=== PATIENT | female | born 2000 | race African-American/Black ===

== ENCOUNTER 2021-03-09 00:06 | Emergency (ER) ==
[~2021-03-09] VITALS: Ht 165.1 cm; Wt 63.4 kg
== END 2021-03-09 00:24 | disposition admitted as inpatient to this hospital (09) ==
LOC: M ED 00:06
DX: R10.9 Unspecified abdominal pain (principal)

== ENCOUNTER 2021-03-09 00:28 | Outpatient (CLI) ==
[~2021-03-09] VITALS: Ht 165.1 cm; Wt 62.7 kg
[2021-03-09 01:00] VITALS: BP 117/71
[2021-03-09 01:43] LABS: HEMATOCRIT 32.5 % (36.0-47.0); HEMOGLOBIN 10.8 g/dl (12.0-15.5); MEAN CORPUSCULAR HEMOGLOBIN 30.9 pg (27.0-33.0); MEAN CORPUSCULAR HGB CONC 33.2 g/dl (32.0-36.5); MEAN CORPUSCULAR VOLUME 93.1 fl (80.0-96.0); PLATELET COUNT, AUTOMATED 237 10^3/uL (150-450); RED BLOOD COUNT 3.49 10^6/uL (4.00-5.40); WHITE BLOOD COUNT 11.2 10^3/uL (4.0-10.0)
[2021-03-09 02:08] LABS: ALT/SGPT 95 U/L (12-78); BILIRUBIN,TOTAL 0.6 MG/DL (0.2-1.0); BLOOD UREA NITROGEN 7 MG/DL (7-18); CALCIUM LEVEL 8.8 MG/DL (8.5-10.1); CARBON DIOXIDE LEVEL 24 MEQ/L (21-32); CHLORIDE LEVEL 107 MEQ/L (98-107); CREATININE FOR GFR 0.54 MG/DL (0.55-1.30); GLOMERULAR FILTRATION RATE > 60.0 (>60); GLUCOSE, FASTING 97 MG/DL (70-100); POTASSIUM SERUM 4.2 MEQ/L (3.5-5.1); SODIUM LEVEL 138 MEQ/L (136-145); TOTAL PROTEIN 6.7 GM/DL (6.4-8.2)
[2021-03-09] MEDS ORDERED: ONDANSETRON 4MG/2ML VIAL IV SCH (02:15)
[2021-03-09 02:33] VITALS: BP 119/65
[2021-03-09] MEDS ORDERED: MULTIVITAMIN -ADULT INJECTION 10 ML, THIAMINE INJection 100 MG, FOLIC ACID 1 MG in NS 1... IV ONE (03:00)
[2021-03-09 04:52] VITALS: BP 114/73
--- NOTE | 2021-03-09 05:56 | ED PDOC ---
Post-Departure Follow-Up Bad table Item Value Date Time Sodium Level 138 MEQ/L 03/09/21 0134 Potassium Level 4.2 MEQ/L 03/09/21 0134 Chloride Level 107 MEQ/L 03/09/21 0134 Carbon Dioxide Level 24 MEQ/L 03/09/21 0134 Anion Gap 7 MEQ/L L 03/09/21 0134 Blood Urea Nitrogen 7 MG/DL 03/09/21 0134 Creatinine 0.54 MG/DL L 03/09/21 0134 Glomerular Filtration Rate > 60.0 03/09/21 0134 Fasting Glucose 97 MG/DL 03/09/21 0134 Calcium Level 8.8 MG/DL 03/09/21 0134 Total Bilirubin 0.6 MG/DL 03/09/21 0134 Aspartate Amino Transf (AST/SGOT) 99 U/L H 03/09/21 0134 Alanine Aminotransferase (ALT/SGPT) 95 U/L H 03/09/21 0134 Alkaline Phosphatase 79 U/L 03/09/21 0134 Total Protein 6.7 GM/DL 03/09/21 0134 Albumin 3.0 GM/DL L 03/09/21 0134 Albumin/Globulin Ratio 0.8 L 03/09/21 0134 Item Value Date Time White Blood Count 11.2 10^3/uL H 03/09/21 0134 Red Blood Count 3.49 10^6/uL L 03/09/21 0134 Hemoglobin 10.8 g/dl L 03/09/21 0134 Hematocrit 32.5 % L 03/09/21 0134 Mean Corpuscular Volume 93.1 fl 03/09/21 0134 Mean Corpuscular Hemoglobin 30.9 pg 03/09/21 0134 Mean Corpuscular Hemoglobin Concent 33.2 g/dl 03/09/21 0134 Red Cell Distribution Width 13.3 % 03/09/21 0134 Platelet Count 237 10^3/uL 03/09/21 0134 Item Value Date Time White Blood Count 11.2 10^3/uL H 03/09/21 0134 Red Blood Count 3.49 10^6/uL L 03/09/21 0134 Hemoglobin 10.8 g/dl L 03/09/21 0134 Hematocrit 32.5 % L 03/09/21 0134 Mean Corpuscular Volume 93.1 fl 03/09/21 0134 Mean Corpuscular Hemoglobin 30.9 pg 03/09/21 0134 Mean Corpuscular Hemoglobin Concent 33.2 g/dl 03/09/21 013 Red Cell Distribution Width 13.3 % 03/09/21 013 Platelet Count 237 10^3/uL 03/09/21 0134 added to initial document re dehydration Suresh Bird MD Mar 09, 2021 05:56
--- NOTE | 2021-03-09 06:01 | IPNPDOC ---
Text Note Date of Service The patient was seen on 03/09/21. NOTE Vital Signs Label Value Date Time Patient Temperature 97.0 degrees F 03/09/216 Temperature Source Temporal 03/09/216 Respiratory Rate 20 bpm 03/09/216 Pulse 81 03/09/216 Blood Pressure Assessment 111/69 (83) 03/09/216 Location Left Arm Source Automatic Cuff (NIBP) Position Sitting Bedside Pulse Oximetry 100 % 03/09/216 Item Value Date Time Oxygen Delivery Method Room Air 03/09/216 0541 am patient sent from ed for abdominal pain and dehydration. lmp 10/07/20 edc by early us 6.4 weeks edc now 18.2 weeks hx n and v x 24 hours no vaginal bleeding no blood loss risk factors fibroid uterus nausea and vomiting examination no distress initially not vomiting however 1 hour into observation vomiting . patient discharged with precautions keep appointment ft drum ob plan . iv hydrate blood work urine VS,Fishbone, I+O VS, Fishbone, I+O Vital Signs Date Time Temp Pulse Resp B/P (MAP) Pulse Ox O2 Delivery O2 Flow Rate FiO2 03/09/21 00:07 97.0 81 20 111/69 (83) 100 Room Air Suresh Bird MD Mar 09, 2021 05:47
== END 2021-03-09 05:37 | disposition home or self-care (01) ==
LOC: M LDO 00:28
PROVIDERS: ATTEND Obstetrics & Gynecology
DX: O26.892 Other specified pregnancy related conditions, second trimester (principal); O21.9 Vomiting of pregnancy, unspecified; Z3A.18 18 weeks gestation of pregnancy
CPT/HCPCS: 36415; 80053; 81001; 85027; G0378; G0463; J3411; U0002

== ENCOUNTER 2021-06-20 10:24 | Emergency (ER) | payer OTHER ==
[~2021-06-20] VITALS: Ht 165.1 cm; Wt 69.5 kg
[2021-06-20 12:48] LABS: BASO % 0.3 % (0.0-1.0); EOS # 0.1 10^3/uL (0.0-0.5); EOS % 1.4 % (0.0-3.0); HEMOGLOBIN 10.2 g/dl (12.0-15.5); LYMPH # 2.2 10^3/uL (1.5-5.0); LYMPH % 23.9 % (24.0-44.0); MEAN CORPUSCULAR HEMOGLOBIN 26.7 pg (27.0-33.0); MEAN CORPUSCULAR HGB CONC 30.9 g/dl (32.0-36.5); MEAN CORPUSCULAR VOLUME 86.4 fl (80.0-96.0); MONO # 0.9 10^3/uL (0.0-0.8); MONO % 9.2 % (2.0-8.0); NEUTROPHILS # 5.9 10^3/uL (1.5-8.5); NEUTROPHILS % 63.8 % (36.0-66.0); PLATELET COUNT, AUTOMATED 217 10^3/uL (150-450); RED BLOOD COUNT 3.82 10^6/uL (4.00-5.40); WHITE BLOOD COUNT 9.2 10^3/uL (4.0-10.0)
[2021-06-20 13:19] LABS: ALBUMIN 2.7 GM/DL (3.2-5.2); BILIRUBIN,DIRECT 0.1 MG/DL (0.0-0.2); BILIRUBIN,TOTAL 0.4 MG/DL (0.2-1.0); FREE T4 1.9 NG/DL (0.76-1.46); TOTAL PROTEIN 6.9 GM/DL (6.4-8.2)
[2021-06-20 15:23] VITALS: BP 119/76
[2021-06-20 19:30] LABS: MAGNESIUM LEVEL 1.7 MG/DL (1.7-2.2)
[2021-06-21] MEDS ORDERED: PRENTAB9 PO (21:54)
[2021-06-21] MEDS ORDERED: IRON1TAB2 PO (21:54)
== END 2021-06-20 16:00 | disposition home or self-care (01) ==
LOC: M ED 10:24
DX: O99.513 Diseases of the respiratory system complicating pregnancy, third trimester (principal); J45.901 Unspecified asthma with (acute) exacerbation

== ENCOUNTER 2021-06-21 21:24 | Outpatient (CLI) | payer OTHER, SELFPAY ==
[~2021-06-21] VITALS: Ht 165.1 cm; Wt 69.4 kg
[2021-06-21 21:40] VITALS: BP 125/79
[2021-06-21] MEDS ORDERED: PRENTAB9 PO (21:54)
[2021-06-21] MEDS ORDERED: IRON1TAB2 PO (21:54)
[2021-06-21 22:37] VITALS: BP 132/84
== END 2021-06-21 22:40 | disposition home or self-care (01) ==
LOC: M LDO 21:24
PROVIDERS: ATTEND Obstetrics & Gynecology
DX: O36.8130 Decreased fetal movements, third trimester, not applicable or unspecified (principal); Z3A.33 33 weeks gestation of pregnancy
CPT/HCPCS: 59025; G0378; G0463

== ENCOUNTER 2021-08-01 04:21 | Inpatient (IN) | payer BC, OTHER ==
[~2021-08-01] VITALS: Ht 165.1 cm; Wt 78.3 kg
[2021-08-01] VITALS (30 sets, daily range): BP systolic 100–147; BP diastolic 56–98
[~2021-08-01 04:21] MED LIST: IRON1TAB2 PO; PRENTAB9 PO
[2021-08-01] MEDS ORDERED: LACTATED RINGER'S 1000 ML IV STA (05:28)
[2021-08-01] MEDS ORDERED: CARBOPROST TROMETHAMINE 250 MCG/ML AMP IM PRN (05:30)
[2021-08-01] MEDS ORDERED: OXYTOCIN DRIP 30 UNITS in IV 1 EA IV PRN ×4 (05:30)
[2021-08-01] MEDS ORDERED: LR 1,000 ML IV SCH (05:30)
[2021-08-01] MEDS ORDERED: LIDOCAINE 1% MDV 20ML VIAL INFIL PRN (05:30)
[2021-08-01] MEDS ORDERED: METHYLERGONOVINE MALEATE 0.2 MG/ML VIAL (J2210) IM PRN (05:30)
[2021-08-01] MEDS ORDERED: TRANEXAMIC ACID INJection 1,000 MG in NS 100 ML IV PRN (05:30)
[2021-08-01 06:23] LABS: HEMATOCRIT 34.4 % (36.0-47.0); HEMOGLOBIN 10.7 g/dl (12.0-15.5); MEAN CORPUSCULAR HEMOGLOBIN 26.2 pg (27.0-33.0); MEAN CORPUSCULAR HGB CONC 31.1 g/dl (32.0-36.5); MEAN CORPUSCULAR VOLUME 84.3 fl (80.0-96.0); PLATELET COUNT, AUTOMATED 276 10^3/uL (150-450); RED BLOOD COUNT 4.08 10^6/uL (4.00-5.40); WHITE BLOOD COUNT 11.5 10^3/uL (4.0-10.0)
[2021-08-01] MEDS ORDERED: FENTANYL 2MCG/ML ROPIVACAINE 0.2% IN 0.9% NACL 100ML IVBAG As Ordered ONE (07:34)
[2021-08-01] MEDS ORDERED: LACTATED RINGER'S 1000 ML IV PRN (08:10)
[2021-08-01] MEDS ORDERED: ONDANSETRON 4MG/2ML VIAL IV PRN ×2 (08:10→13:40)
[2021-08-01] MEDS ORDERED: EPIDURAL COMMENT XX SCH (08:10)
[2021-08-01] MEDS ORDERED: FENTANYL/ROPIVACAINE/NACL BAG 100 ML EPIDURAL SCH (08:10)
[2021-08-01] MEDS ORDERED: REFRIGERATOR IV KEYS XX PRN (08:10)
[2021-08-01] MEDS ORDERED: ePHEDrine SULFATE 25 MG/5 ML(5MG/ML) SYRINGE IV PRN (08:10)
[2021-08-01] MEDS ORDERED: EPIDURAL/PCA KEYS XX PRN (08:10)
[2021-08-01] MEDS ORDERED: NALOXONE INJ 0.4MG/1ML VIAL (J2310 PER 1MG) IV PRN (08:10)
[2021-08-01] MEDS ORDERED: diphenhydrAMINE 50MG/ML VIAL (J1200) IV PRN (08:10)
[2021-08-01] MEDS ORDERED: OXYTOCIN DRIP 30 UNITS in IV 1 EA IV SCH ×8 (09:15→13:40)
[2021-08-01] MEDS ORDERED: OXYTOCIN 30 UNITS IN 0.9% NaCl 500ML IV BAG (J2590) As Ordered ONE (12:22)
[2021-08-01] MEDS ORDERED: METHYLERGONOVINE MALEATE 0.2 MG TAB PO PRN (13:40)
[2021-08-01] MEDS ORDERED: MEASLES,MUMPS,RUBELLA VACCINE INJ (MMR-II) (90707) SC SCH (13:40)
[2021-08-01] MEDS ORDERED: ACETAMINOPHEN 500 MG TAB PO PRN (13:40)
[2021-08-01] MEDS ORDERED: RHOGAM 300 MCG (1500 IU) INJ (J2790) IM SCH (13:40)
[2021-08-01] MEDS ORDERED: DIBUCAINE 1% OINTMENT 30GM TOP PRN (13:40)
[2021-08-01] MEDS ORDERED: ACETAMINOPHEN TAB 650MG DOSE (2X325MG) PO PRN (13:40)
[2021-08-01] MEDS ORDERED: ANUSOL HC CREAM 30GM TOP PRN (13:40)
[2021-08-01] MEDS: PRENATAL VITAMINS CHEWABLE TABLET PO SCH (17:07)
[2021-08-01] MEDS: IBUPROFEN 600MG TAB PO PRN (17:52)
[2021-08-01] MEDS: DOCUSATE SODIUM 100MG CAPSULE PO SCH (20:54)
[2021-08-02 06:00] VITALS: BP 146/90
[2021-08-02] MEDS: IBUPROFEN 600MG TAB PO PRN (06:43)
[2021-08-02] MEDS: DOCUSATE SODIUM 100MG CAPSULE PO SCH ×2 (09:02→20:28)
[2021-08-02] MEDS: PRENATAL VITAMINS CHEWABLE TABLET PO SCH (09:02)
[2021-08-02 10:31] VITALS: BP 137/84
[2021-08-02 18:01] VITALS: BP 132/90
[2021-08-02] MEDS: IBUPROFEN 800 MG TAB PO PRN (18:38)
[2021-08-02 19:20] VITALS: BP 131/91
[2021-08-03] MEDS: IBUPROFEN 800 MG TAB PO PRN (04:52)
[2021-08-03] MEDS ORDERED: IBUP80TA PO (05:38)
[2021-08-03] MEDS ORDERED: COLA100C5 PO (05:38)
[2021-08-03] MEDS ORDERED: ACET1TAB55 PO (05:38)
[2021-08-03 06:00] VITALS: BP 139/83
[2021-08-03 07:15] LABS: ALBUMIN 2.2 GM/DL (3.2-5.2); ALT/SGPT 36 U/L (12-78); BILIRUBIN,TOTAL 0.5 MG/DL (0.2-1.0); BLOOD UREA NITROGEN 11 MG/DL (7-18); CALCIUM LEVEL 8.8 MG/DL (8.5-10.1); CARBON DIOXIDE LEVEL 27 MEQ/L (21-32); CHLORIDE LEVEL 107 MEQ/L (98-107); CREATININE FOR GFR 0.82 MG/DL (0.55-1.30); GLOMERULAR FILTRATION RATE > 60.0 (>60); GLUCOSE, FASTING 73 MG/DL (70-100); LDH LACTATE DEHYDROGENASE 242 U/L (84-246); POTASSIUM SERUM 3.6 MEQ/L (3.5-5.1); SODIUM LEVEL 140 MEQ/L (136-145); TOTAL PROTEIN 6.1 GM/DL (6.4-8.2)
[2021-08-03] MEDS: PRENATAL VITAMINS CHEWABLE TABLET PO SCH (08:17)
[2021-08-03] MEDS: DOCUSATE SODIUM 100MG CAPSULE PO SCH (08:17)
== END 2021-08-03 11:40 | disposition home or self-care (01) | DRG 560 ==
LOC: M LDO 04:21 → M LDI 05:24 → M OBS 16:50
PROVIDERS: ADMIT Obstetrics & Gynecology; ATTEND Obstetrics & Gynecology
PROC: 10E0XZZ Delivery of Products of Conception, External Approach (ICD-10-PCS; principal; 2021-08-01)
PROC: 0KQM0ZZ Repair Perineum Muscle, Open Approach (ICD-10-PCS; 2021-08-01)
DX: O99.52 Diseases of the respiratory system complicating childbirth (principal); Z37.0 Single live birth; J45.909 Unspecified asthma, uncomplicated; Z3A.39 39 weeks gestation of pregnancy; O76 Abnormality in fetal heart rate and rhythm complicating labor and delivery; O70.1 Second degree perineal laceration during delivery; O36.5930 Maternal care for other known or suspected poor fetal growth, third trimester, not applicable or unspecified

== ENCOUNTER 2022-07-01 13:50 | Outpatient (CLI) | payer SELFPAY ==
[~2022-07-01] VITALS: Ht 162.6 cm; Wt 76.5 kg
[~2022-07-01 13:50] MED LIST changes: +ACET1TAB55 PO; +COLA100C5 PO; +IBUP80TA PO
[2022-07-01 14:15] VITALS: BP 120/74
[2022-07-01] MEDS ORDERED: HOME MED LIST COMPLETE! XX SCH (14:15)
== END 2022-07-01 14:32 | disposition home or self-care (01) ==
LOC: M LDO 13:50
PROVIDERS: ATTEND Registered Nurse
DX: O34.12 Maternal care for benign tumor of corpus uteri, second trimester (principal); Z3A.22 22 weeks gestation of pregnancy; D25.9 Leiomyoma of uterus, unspecified
CPT/HCPCS: 59025; G0463

== ENCOUNTER 2022-07-19 10:30 | Inpatient (IN) | payer SELFPAY ==
[~2022-07-19] VITALS: Ht 162.6 cm; Wt 78.2 kg
[2022-07-19] VITALS (28 sets, daily range): BP systolic 118–145; BP diastolic 68–100
[2022-07-19] MEDS ORDERED: HOME MED LIST COMPLETE! XX SCH (11:30)
[2022-07-19] MEDS ORDERED: LACTATED RINGER'S 1000 ML IV STA (11:34)
[2022-07-19] MEDS ORDERED: LIDOCAINE 1% MDV 20ML VIAL INFIL PRN (11:35)
[2022-07-19] MEDS ORDERED: TRANEXAMIC ACID INJection 1,000 MG in NS 100 ML IV PRN (11:35)
[2022-07-19] MEDS ORDERED: METHYLERGONOVINE MALEATE 0.2MG/ML 1ML VIAL IM PRN (11:35)
[2022-07-19] MEDS ORDERED: OXYTOCIN DRIP 30 UNITS in IV 1 EA IV PRN ×4 (11:35)
[2022-07-19] MEDS ORDERED: CARBOPROST TROMETHAMINE 250 MCG/ML AMP IM PRN (11:35)
[2022-07-19] MEDS ORDERED: LR 1,000 ML IV SCH ×2 (11:35→12:50)
[2022-07-19 12:27] LABS: HEMATOCRIT 33.5 % (36.0-47.0); HEMOGLOBIN 10.2 g/dl (12.0-15.5); MEAN CORPUSCULAR HEMOGLOBIN 25.1 pg (27.0-33.0); MEAN CORPUSCULAR HGB CONC 30.4 g/dl (32.0-36.5); MEAN CORPUSCULAR VOLUME 82.5 fl (80.0-96.0); PLATELET COUNT, AUTOMATED 254 10^3/uL (150-450); RED BLOOD COUNT 4.06 10^6/uL (4.00-5.40); WHITE BLOOD COUNT 7.5 10^3/uL (4.0-10.0)
[2022-07-19] MEDS ORDERED: OXYTOCIN DRIP 30 UNITS in IV 1 EA IV SCH (12:50)
[2022-07-19] MEDS ORDERED: PENICILLIN G POTASSIUM 5 MU IV 5 MU in D5W MINI-BAG PLUS 100 ML IV STA (12:52)
[2022-07-19] MEDS ORDERED: ONDANSETRON 4MG 2ML VIAL IV PRN (15:15)
[2022-07-19] MEDS ORDERED: diphenhydrAMINE 50MG/ML VIAL IV PRN (15:15)
[2022-07-19] MEDS ORDERED: FENTANYL/ROPIVACAINE/NACL BAG 100 ML EPIDURAL SCH (15:15)
[2022-07-19] MEDS ORDERED: LR 500 ML IV PRN (15:15)
[2022-07-19] MEDS ORDERED: NALOXONE INJ 0.4MG/1ML VIAL IV PRN (15:15)
[2022-07-19] MEDS ORDERED: EPIDURAL/PCA KEYS XX PRN (15:15)
[2022-07-19] MEDS ORDERED: ePHEDrine SULFATE 25 MG/5 ML(5MG/ML) SYRINGE IVP PRN (15:15)
[2022-07-19] MEDS ORDERED: PEN G POT 3,000,000 UNIT/50 ML 3,000,000 UNIT in IV 1 EA IV SCH (17:00)
[2022-07-19] MEDS ORDERED: ANUSOL HC CREAM 30GM TOP PRN (17:30)
[2022-07-19] MEDS ORDERED: MOM 30ML SUSPENSION UDC PO PRN (17:30)
[2022-07-19] MEDS ORDERED: DOCUSATE SODIUM 100MG CAPSULE PO PRN (17:30)
[2022-07-19] MEDS ORDERED: DIBUCAINE 1% OINTMENT 30GM TOP PRN (17:30)
[2022-07-19] MEDS: IBUPROFEN 800 MG TAB PO PRN (22:17)
[2022-07-20 06:00] VITALS: BP 130/87
[2022-07-20] MEDS: PRENATAL VITAMINS CHEWABLE TABLET PO SCH (08:49)
[2022-07-20] MEDS: IBUPROFEN 800 MG TAB PO PRN ×2 (08:50→18:43)
[2022-07-20] MEDS: ACETAMINOPHEN 500 MG TAB PO PRN ×2 (15:13→21:46)
[2022-07-20 18:00] VITALS: BP 134/92
[2022-07-21 06:00] VITALS: BP 111/73
[2022-07-21] MEDS ORDERED: MEASLES,MUMPS,RUBELLA VACCINE INJ (MMR-II) SC.IMMUN ONE (09:00)
[2022-07-21] MEDS: IBUPROFEN 800 MG TAB PO PRN (10:15)
[2022-07-21] MEDS: PRENATAL VITAMINS CHEWABLE TABLET PO SCH (10:15)
== END 2022-07-21 11:58 | disposition home or self-care (01) | DRG 560 ==
LOC: M LDI 10:30 → M OBS 20:30
PROVIDERS: ADMIT Advanced Practice Midwife; ATTEND Obstetrics & Gynecology
PROC: 10E0XZZ Delivery of Products of Conception, External Approach (ICD-10-PCS; principal; 2022-07-19)
PROC: 3E033VJ Introduction of Other Hormone into Peripheral Vein, Percutaneous Approach (ICD-10-PCS; 2022-07-19)
DX: O36.5930 Maternal care for other known or suspected poor fetal growth, third trimester, not applicable or unspecified (principal); Z37.0 Single live birth; Z3A.38 38 weeks gestation of pregnancy; O99.824 Streptococcus B carrier state complicating childbirth

== ENCOUNTER 2023-03-06 07:32 | Emergency (ER) | payer OTHER ==
[~2023-03-06] VITALS: Ht 162.6 cm; Wt 72.3 kg
[2023-03-06 08:44] LABS: BASO % 0.7 % (0.0-1.0); EOS # 0.2 10^3/uL (0.0-0.5); EOS % 3.3 % (0.0-3.0); HEMATOCRIT 46.5 % (36.0-47.0); HEMOGLOBIN 15.6 g/dl (12.0-15.5); LYMPH # 2.8 10^3/uL (1.5-5.0); LYMPH % 50.3 % (24.0-44.0); MEAN CORPUSCULAR HEMOGLOBIN 30.8 pg (27.0-33.0); MEAN CORPUSCULAR HGB CONC 33.5 g/dl (32.0-36.5); MEAN CORPUSCULAR VOLUME 91.9 fl (80.0-96.0); MONO # 0.4 10^3/uL (0.0-0.8); MONO % 7.1 % (2.0-8.0); NEUTROPHILS # 2.1 10^3/uL (1.5-8.5); NEUTROPHILS % 38.2 % (36.0-66.0); PLATELET COUNT, AUTOMATED 235 10^3/uL (150-450); RED BLOOD COUNT 5.06 10^6/uL (4.00-5.40); WHITE BLOOD COUNT 5.5 10^3/uL (4.0-10.0)
[2023-03-06] MEDS ORDERED: BACT800T5 PO (10:26)
[2023-03-06 10:46] VITALS: BP 138/78; TEMP 97.7; O2SAT 97
[2023-03-06 11:04] LABS: GC DNA AMPLIFICATION NEGATIVE (NEGATIVE)
== END 2023-03-06 11:03 | disposition home or self-care (01) ==
LOC: M ED 07:32
DX: N92.1 Excessive and frequent menstruation with irregular cycle (principal); D45 Polycythemia vera; N34.1 Nonspecific urethritis; D25.9 Leiomyoma of uterus, unspecified; Z79.2 Long term (current) use of antibiotics

== ENCOUNTER 2023-05-22 21:01 | Emergency (ER) | payer BC, OTHER ==
[~2023-05-22] VITALS: Ht 162.6 cm; Wt 71.9 kg
[~2023-05-22 21:01] MED LIST changes: +BACT800T5 PO
[2023-05-23 02:20] VITALS: BP 131/67; TEMP 98.3; O2SAT 99
[2023-05-23] MEDS ORDERED: FLON27.5 NARES (04:08)
[2023-05-23] MEDS ORDERED: MECL-209 PO (04:08)
[2023-05-23] MEDS ORDERED: MECLIZINE 25 MG TABLET PO ONE (04:10)
== END 2023-05-23 04:53 | disposition home or self-care (01) ==
LOC: M ED 21:01
DX: H81.4 Vertigo of central origin (principal); J45.909 Unspecified asthma, uncomplicated; Z79.899 Other long term (current) drug therapy

== ENCOUNTER → 2023-10-04 | Outpatient (REF) | payer SELFPAY ==
[~2023-10-04] MED LIST changes: +FLON27.5 NARES; +MECL-209 PO
[2023-10-04 16:47] LABS: APPEARANCE, URINE TURBID (CLEAR); BACTERIA, URINE AUTO NEGATIVE (NEGATIVE); BILIRUBIN, URINE AUTO NEGATIVE (NEGATIVE); BLOOD, URINE BLOOD 3+ (NEGATIVE); COLOR, URINE AMBER (YELLOW); GLUCOSE, URINE (UA) AUTO NEGATIVE (NEGATIVE); KETONE, URINE AUTO 1+ mg/dL (NEGATIVE); LEUKOCYTE ESTERASE, URINE AUTO 3+ (NEGATIVE); MUCUS, URINE LARGE (NEGATIVE); NITRITE, URINE AUTO NEGATIVE (NEGATIVE); PROTEIN, URINE AUTO 3+ mg/dL (NEGATIVE); RBC, URINE AUTO 182 /HPF (0-3); SPECIFIC GRAVITY URINE AUTO 1.033 (1.002-1.035); SQUAMOUS EPITHELIAL CELL UR AU 17 /HPF (0-6); WBC, URINE AUTO TNTC /HPF (0-3)
== END ==
LOC: M LAB REF 16:17
PROVIDERS: ATTEND Physician Assistant
DX: N39.0 Urinary tract infection, site not specified (principal)